=== PATIENT | female | born 1965 | race Caucasian/White ===

== ENCOUNTER → 2016-07-05 | Outpatient (CLI) | payer BC | END | disposition home or self-care (01) | LOC: C.PAPS 09:53 | PROVIDERS: ATTEND Obstetrics & Gynecology | DX: Z01.419 Encounter for gynecological examination (general) (routine) without abnormal findings (principal) ==

== ENCOUNTER 2018-12-19 19:43 | Inpatient (IN) ==
--- OUTSIDE RECORDS SUMMARY | 2018-12-19 19:47 | External Medical Summary | Continuity of Care Document ---
:1965 Author Name Karrie Wild, Provider Address Unavailable Unavailable , Care Team Providers Name Role Phone Unavailable Unavailable Unavailable Silvana Wild, Galina Maxwell Unavailable [email or web address] Philipp JACKSON Unavailable Unavailable Unavailable Unavailable Unavailable Problems Herpes simplex virus (HSV) infection (054.9) (B00.9) Encounter for routine gynecological examination (V72.31) (Z0 1.419) Allergies and Adverse Reactions No Known Drug Allergies (Allergy) Medications valACYclovir HCl - 500 MG Oral Tablet; One tablet twic e daily for 3 days Junito Pina Start: 05-Jul-2016 Quantity: 6 Refills: 2 Acyclovir 5 % External Ointment; Apply t o affected area every 2-3 hours as needed. Junito Pina Start: 05-Jul-2016 Quantity: 1 15 GM Tube Refills: 1 Procedures History of Oral Surgery Tooth Extraction Status: Completed History of Colonoscopy (Fiberoptic) Stat us: Completed Immunizations Immunizations not documented Family History Mother Family history of hypercholesterolemia (V18.19) (Z83.42) Sta tus: Active Brother Family history of hypercholesterolemia (V18.19) (Z83.42) Sta tus: Active Grandmother Family history of osteoporosis (V17.81) (Z82.62) Status: Act naren Grandfather Family history of Colon cancer (153.9) (C18.9) Status: Activ e uncle Family history of Colon cancer (153.9) (C18.9) Status: Activ e Social History - Smoking Status Never smoker Plan of Treatment Planned Observations Planned Goals not documented Results No Known Results Results not documented
[2018-12-19] MEDS ORDERED: SODIUM CHLORIDE 0.9% 1000ML 1,000 ML IV SCH (20:15)
[2018-12-19] MEDS ORDERED: ONDANSETRON INJ 2 MG/ML 2 ML VIAL IV STA (20:15)
[2018-12-19 20:27] LABS: Hematocrit (blood only) 36.6 % (37-47); Hemoglobin 13.2 g/dL (12.0-16.0); Mean Corpuscular Hgb Conc 36.1 g/dL (32-36); Mean Corpuscular Volume 83.8 fL (80-100); Mean Platelet Volume 11.2 fL (7.4-10.4); Platelet Count 213 K/uL (130-400); RDW Coefficient of Variation 12.2 % (11.5-14.5); RDW Standard Deviation 37.4 fL (36.4-46.3); Red Blood Count 4.37 M/uL (4.2-5.4); White Blood Count 8.42 K/uL (4.8-10.8)
--- NOTE | 2018-12-19 20:38 | Emergency Department Note ---
Entered by Faisal Saravia acting as a scribe for Erich Soto DO History of Present Illness General Chief complaint: Vomiting Stated complaint: FOOD BORNE ILLNESS,PASSING OUT,VOMITING Time Seen by Provider: 12/19/18 20:05 Source: patient History of Present Illness Onset (ago): hour(s) (earlier today) Location: mouth (vomiting) Pain Consistency: + intermittent Maximum Pain Intensity: 5 Quality: + burning Exacerbated By: + other (food) Associated symptoms: + nausea/vomiting and + other (dehydration, diarrhea, back pain, and dark stool, abdominal pain, burning diaphragm) The patient is a 53 year old F who presents to the Emergency Room with complaints of intermittent vomiting that started earlier today. The patient states that she was at a restaurant last night and had sauerkraut to eat. She notes that she thinks she might have food poisoning. She adds that 5 other individuals who ate at the restaurant yesterday share similar symptoms to her. She adds that last night after dinner, she was experiencing a burning diaphragm and abdominal pain. She states that she is currently experiencing nausea, vomiting, dehydration, diarrhea, back pain, and dark stool. She adds that she has had 10 bowel movements today. Home Medications Home Medications Medication Instructions Recorded Confirmed Type No Known Home Medications 12/19/18 12/19/18 History Allergies Allergy/AdvReac Type Severity Reaction Status Date / Time gluten AdvReac Unknown Gastrointestinal Verified 12/19/18 21:14 Upset Past Med/Surg History Medical History No chronic problems Family History Other No significant family history Social History Preferred Language: Cook Islander Feels Safe at Home: Yes Smoking Status: Never smoker Review of Systems See HPI for pertinent positives & negatives. and A total of 10 systems reviewed and were otherwise negative Physical Exam Vital Signs Vital Signs - 24 hr 12/19/18 19:48 12/19/18 21:11 Temperature 37.0 C 37.1 C Temperature Source Oral Oral Sepsis Recent Fever Within 48 Hours No Sepsis New/Unexplained Change in Mental Status No Sepsis Action Taken by Nursing No Action Required Pulse Rate 79 Pulse Rate [Finger] 65 Respiratory Rate 18 18 Respiratory Effort / Characteristics Non-Labored Respiratory Depth Normal Blood Pressure 144/78 H Blood Pressure [Right Arm] 114/61 Blood Pressure Mean 100 Blood Pressure Mean [Right Arm] 78 Pulse Oximetry 99 92 Oxygen Delivery Method Room Air Room Air CONSTITUTIONAL/VITAL SIGNS: Reviewed / noted above. GENERAL: Non-toxic in appearance. INTEGUMENTARY: Warm, dry, and [place]. HEAD: Normocephalic. EYES: without scleral icterus or trauma. ENT/OROPHARYNX: clear and moist. LYMPHADENOPATHY/NECK: Is supple without lymphadenopathy or meningismus. RESPIRATORY: Lungs clear and equal. CARDIOVASCULAR: Regular rate and rhythm. GI/ABDOMEN: Soft and nontender. No organomegaly or pulsatile mass. No rebound or guarding. Normal bowel sounds. EXTREMITIES: Warm and well perfused. BACK: No CVA tenderness. NEUROLOGICAL: Intact without focal deficits. PSYCHIATRIC: normal affect. MUSCULOSKELETAL: Normally developed with good muscle tone. Course 2006: Past medical records reviewed. The patient was evaluated in room C5. A complete history and physical exam was performed. 213: I reviewed the patient's case with Dr. Jasiel Hidalgo, [facility] Hospitalist. He will evaluate the patient for further management. Consultations Consultation #1: I reviewed the patient's case with Dr. Jasiel Hidalgo, [facility] Hospitalist. He will evaluate the patient for further management. Time: 21:31 Administered Medications Discontinued Medications Acetaminophen (Tylenol) 500 mg PO NOW STA Stop: 12/19/18 21:16 Last Admin: 12/19/18 21:19 Dose: 500 mg Documented by: [id number] Sodium Chloride (Nss 1000ml) 1,000 mls @ 999 mls/hr IV .Q1H1M VIVIAN Stop: 12/19/18 21:15 Last Admin: 12/19/18 20:21 Dose: 999 mls/hr Documented by: [id number] Ondansetron HCl (Zofran) 4 mg IV NOW STA Stop: 12/19/18 20:16 Last Admin: 12/19/18 20:24 Dose: 4 mg Documented by: [id number] Medical Decision Making Differential Diagnosis Differential diagnosis includes: gastroenteritis, food borne illness, infections, appendicitis, diverticulitis, inflammatory bowel disease, obstruction, GI bleed, biliary pathology, as well as others were entertained. Medical Records Attestation: I reviewed the patient's medical records. Home Medications Current Medication List: was personally reviewed by me Laboratory Data Attestation: I reviewed the patient's lab results. Result diagrams: 12/19/18 20:04 12/19/18 20:04 Lab Results 12/19/18 12/19/18 Range/Units 20:04 20:04 WBC 8.42 (4.8-10.8) K/uL RBC 4.37 (4.2-5.4) M/uL Hgb 13.2 (12.0-16.0) g/dL Hct 36.6 L (37-47) % MCV 83.8 (80-100) fL MCH 30.2 (25-34) pg MCHC 36.1 H (32-36) g/dL RDW Std Deviation 37.4 (36.4-46.3) fL RDW Coeff of Ayo 12.2 (11.5-14.5) % Plt Count 213 (130-400) K/uL MPV 11.2 H (7.4-10.4) fL Immature Gran % (Auto) 0.1 % Neut % (Auto) 76.4 % Lymph % (Auto) 12.5 % [place] % (Auto) 9.5 % Eos % (Auto) 1.4 % Baso % (Auto) 0.1 % Immature Gran # (Auto) 0.01 (0.00-0.02) K/uL Neut # (Auto) 6.43 (1.4-6.5) K/uL Lymph # (Auto) 1.05 L (1.2-3.4) K/uL [place] # (Auto) 0.80 H (0.11-0.59) K/uL Eos # (Auto) 0.12 (0-0.5) K/uL Baso # (Auto) 0.01 (0-0.2) K/uL Sodium 123 L (136-145) mmol/L Potassium 3.1 L (3.5-5.1) mmol/L Chloride 91 L (98-107) mmol/L Carbon Dioxide 21 (21-32) mmol/L Anion Gap 11.0 (3-11) BUN 9 (7-18) mg/dl Creatinine 0.77 (0.6-1.2) mg/dl Est Cr Clr Drug Dosing 83.5 ml/min Est GFR ( Amer) 100.7 Est GFR (Non-Af Amer) 86.9 BUN/Creatinine Ratio 11.5 (10-20) Glucose 129 H (70-99) mg/dl Calcium 8.8 (8.5-10.1) mg/dl Total Bilirubin 0.9 (0.2-1) mg/dl AST 22 (15-37) U/L ALT 24 (12-78) U/L Alkaline Phosphatase 89 (45-117) U/L Total Protein 7.2 (6.4-8.2) gm/dl Albumin 3.7 (3.4-5.0) gm/dl Globulin 3.5 (2.5-4.0) gm/dl Albumin/Globulin Ratio 1.0 (0.9-2) Lipase 402 H (73-393) U/L Blood Pressure Blood Pressure Findings: Normal blood pressure Blood Pressure Disposition: did not require urgent referral MDM Narrative This is a 53-year-old female who presents to the ED with a chief complaint of nausea, vomiting diarrhea. The patient states that she thinks that she may have had some bad food last night. Other people are symptomatic but not as bad as her. She states that her symptoms started this morning with some nausea. She also developed an episode of vomiting about an hour ago and diarrhea about 10 times today. She has had some crampy abdominal pains as well. Her physical exam reveals some mild hypertension. She has a nontender abdomen. The rest of her exam was unremarkable. She appears to be in minimal discomfort. She did not want anything for pain. The CBC was normal. Sodium is 123. Chloride is 91 and potassium is 3.1. The patient was hydrated with a liter of normal saline IV. She was given some Tylenol for headache. Because of the low sodium and vomiting/diarrhea, I spoke with the hospitalist who will see the patient for further evaluation and care per Impression & Plan Hyponatremia, Nausea & vomiting, Diarrhea, Dehydration Discharge Plan Visit Data Chief Complaint: Vomiting Stated Complaint: FOOD BORNE ILLNESS,PASSING OUT,VOMITING ED Provider: Erich Soto Discharge Problem: Hyponatremia, Nausea & vomiting, Diarrhea, Dehydration Patient Disposition: Admitted As Inpatient Forms Stand Alone Forms: My [facility] [employer] Prescriptions Prescriptions: No Action No Known Home Medications RF: 0 Referrals Referrals: Karie Mcnamara MD [Primary Care Provider] - Discharge Problem: Nausea & vomiting Qualifiers: Vomiting type: unspecified Vomiting Intractability: non-intractable Qualified Code(s): R11.2 - Nausea with vomiting, unspecified Diarrhea Qualifiers: Diarrhea type: unspecified type Qualified Code(s): R19.7 - Diarrhea, unspecified The scribe's documentation has been prepared under my direction and personally reviewed by me in its entirety. I confirm that the note above accurately refle cts all work, treatment, procedures, and medical decision making performed by me.
[2018-12-19 20:40] LABS: Albumin Level 3.7 gm/dl (3.4-5.0); BUN Creatinine Ratio 11.5 (10-20); Calcium 8.8 mg/dl (8.5-10.1); Creatinine Clr Calc Pharmacy 83.5 ml/min; Est GFR (African American) 100.7; Est GFR (Non-African American) 86.9
[2018-12-19 21:02] LABS: Bilirubin,Total 0.9 mg/dl (0.2-1); Globulin 3.5 gm/dl (2.5-4.0); Potassium 3.1 mmol/L (3.5-5.1); Total Protein 7.2 gm/dl (6.4-8.2)
[2018-12-19 21:09] LABS: Basophils # (auto) 0.01 K/uL (0-0.2); Basophils % (auto) 0.1 %; Eosinophils # (auto) 0.12 K/uL (0-0.5); Eosinophils % (auto) 1.4 %; Immature Granulocytes # (auto) 0.01 K/uL (0.00-0.02); Immature Granulocytes % (auto) 0.1 %; Lymphocytes # (auto) 1.05 K/uL (1.2-3.4); Lymphocytes % (auto) 12.5 %; Monocytes % (auto) 9.5 %; Neutrophils # (auto) 6.43 K/uL (1.4-6.5); Neutrophils % (auto) 76.4 %
[2018-12-19] MEDS ORDERED: ACETAMINOPHEN 500 MG TAB PO STA (21:15)
--- NOTE | 2018-12-19 22:20 | History & Physical Report ---
Date of Service December 19, 2018 Assessment & Plan (1) Hyponatremia: Patient presents to the emergency department with nausea, vomiting, diarrhea and fatigue that was present before but worsening after symptoms. Order stool culture and stool for WBC smear/E. coli due to concern regarding potential food poisoning. NPO except medications. NSS + KCl 20 mEq at 150 mils per hour. Zofran 4 mg IV every 6 hours PRN. Acetaminophen 5 mg IV every 8 hours PRN mild pain or temperature. Order serum osmolality, urine osmolality and urine sodium. Order Monospot, Lyme and anaplasmosis testing, due to some symptoms being present prior to food exposures. Present on Admission?: Yes (2) Diarrhea: Stool studies as noted above. Present on Admission?: Yes (3) Nausea & vomiting: See above Present on Admission?: Yes (4) Dehydration: See above Present on Admission?: Yes (5) Hypokalemia: See above Present on Admission?: Yes History of Present Illness Chief Complaint: Patient presents to the emergency department with complaint of nausea, vomiting and diarrhea that she attributes to food that she ate the previous evening. Primary Care Provider: Karie Mcnamara MD The patient is a 53-year-old female with no significant past medical history, who presents to the emergency department with complaint of nausea, vomiting and diarrhea that began approximately 6 to 8 hours after eating out at a restaurant, where several of her friends got sick as well. She reports that she had been feeling some fatigue prior to that as well. She presently is taking care of her , who has a combination of mono, Lyme disease and anaplasmosis. She is unaware of any personal tick bites Allergies Allergy/AdvReac Type Severity Reaction Status Date / Time gluten AdvReac Unknown Gastrointestinal Verified 12/19/18 21:14 Upset Home Medications Home Medications Medication Instructions Recorded Confirmed Type No Known Home Medications 12/19/18 12/19/18 History Past Med/Surg History Medical History No chronic problems Family History Other No significant family history Social History Preferred Language: Upper Sorbian Communication Ability: Effective Beliefs That Will Affect Care: None Current Living Situation: Spouse Other Information That Helps Us Care for You: No Feels Safe at Home: Yes Smoking Status: Never smoker Do You Dip or Chew Tobacco: No Second Hand Exposure: No Tobacco Cessation Education Requested by Patient: No Hx Alcohol Use: No Hx Substance Use: No Review of Systems Review of Systems: The patient denies chest pain, palpitations, shortness of breath, dyspnea on exertion, cough, lower extremity swelling, sore throat, fevers, chills, sweats, blood in urine or stool, dysuria, urinary frequency or urgency, headache, memory loss, loss of consciousness, rash, abnormal bruising or bleeding, imbalance, focal or generalized weakness, numbness or tingling in arms or legs, generalized arthralgias or myalgias, back or neck pain, or night sweats. The review of systems is otherwise negative other than for that already noted above, and at least 10 systems have been reviewed.. Physical Exam Physical Exam: The patient is awake, alert and oriented 3, looks fatigued, normocephalic and atraumatic, lying in bed and in no acute distress. HEENT--PERRL, EOMI, mucous membranes and oropharynx dry. Neck--supple. No JVD. No bruits. Thyroid normal, trachea midline, no adenopathy. Heart--normal S1 and S2. No murmurs, rubs or gallops. Lungs--clear bilaterally, no respiratory distress, no accessory muscle use. Abdomen--normal bowel sounds and soft. Nontender. Nondistended. Extremities--no cyanosis or clubbing. No edema. There are good distal pulses b/l. Dermatologic--normal skin turgor, normal color, no abnormal lymph nodes, no ra sh. Neurologic--cranial nerves II through XII grossly intact. Rheumatologic--normal range of motion. Psychiatric--normal affect. Results & Data Vital Signs (Past 12 Hours) Vital Signs Temp Pulse Pulse Resp BP BP Pulse Ox 12/19/18 21:11 98.8 F 65 18 114/61 92 12/19/18 19:48 98.6 F 79 18 144/78 H 99 Laboratory Results Laboratory Results WBC 8.42 K/uL (4.8-10.8) 12/19/18 20:04 RBC 4.37 M/uL (4.2-5.4) 12/19/18 20:04 Hgb 13.2 g/dL (12.0-16.0) 12/19/18 20:04 Hct 36.6 % (37-47) L 12/19/18 20:04 MCV 83.8 fL (80-100) 12/19/18 20:04 MCH 30.2 pg (25-34) 12/19/18 20:04 MCHC 36.1 g/dL (32-36) H 12/19/18 20:04 RDW Std Deviation 37.4 fL (36.4-46.3) 12/19/18 20:04 RDW Coeff of Ayo 12.2 % (11.5-14.5) 12/19/18 20:04 Plt Count 213 K/uL (130-400) 12/19/18 20:04 MPV 11.2 fL (7.4-10.4) H 12/19/18 20:04 Immature Gran % (Auto) 0.1 % 12/19/18 20:04 Neut % (Auto) 76.4 % 12/19/18 20:04 Lymph % (Auto) 12.5 % 12/19/18 20:04 [place] % (Auto) 9.5 % 12/19/18 20:04 Eos % (Auto) 1.4 % 12/19/18 20:04 Baso % (Auto) 0.1 % 12/19/18 20:04 Immature Gran # (Auto) 0.01 K/uL (0.00-0.02) 12/19/18 20:04 Neut # (Auto) 6.43 K/uL (1.4-6.5) 12/19/18 20:04 Lymph # (Auto) 1.05 K/uL (1.2-3.4) L 12/19/18 20:04 [place] # (Auto) 0.80 K/uL (0.11-0.59) H 12/19/18 20:04 Eos # (Auto) 0.12 K/uL (0-0.5) 12/19/18 20:04 Baso # (Auto) 0.01 K/uL (0-0.2) 12/19/18 20:04 Peripher Smr Path Cons Cancelled 12/19/18 23:52 Sodium 123 mmol/L (136-145) L 12/19/18 20:04 Potassium 3.1 mmol/L (3.5-5.1) L 12/19/18 20:04 Chloride 91 mmol/L (98-107) L 12/19/18 20:04 Carbon Dioxide 21 mmol/L (21-32) 12/19/18 20:04 Anion Gap 11.0 (3-11) 12/19/18 20:04 BUN 9 mg/dl (7-18) 12/19/18 20:04 Creatinine 0.77 mg/dl (0.6-1.2) 12/19/18 20:04 Est Cr Clr Drug Dosing 83.5 ml/min 12/19/18 20:04 Est GFR ( Amer) 100.7 12/19/18 20:04 Est GFR (Non-Af Amer) 86.9 12/19/18 20:04 BUN/Creatinine Ratio 11.5 (10-20) 12/19/18 20:04 Glucose 129 mg/dl (70-99) H 12/19/18 20:04 Osmolality 256 mOsm/kg (280-300) L 12/19/18 20:04 Calcium 8.8 mg/dl (8.5-10.1) 12/19/18 20:04 Total Bilirubin 0.9 mg/dl (0.2-1) 12/19/18 20:04 AST 22 U/L (15-37) 12/19/18 20:04 ALT 24 U/L (12-78) 12/19/18 20:04 Alkaline Phosphatase 89 U/L (45-117) 12/19/18 20:04 Total Protein 7.2 gm/dl (6.4-8.2) 12/19/18 20:04 Albumin 3.7 gm/dl (3.4-5.0) 12/19/18 20:04 Globulin 3.5 gm/dl (2.5-4.0) 12/19/18 20:04 Albumin/Globulin Ratio 1.0 (0.9-2) 12/19/18 20:04 Lipase 402 U/L (73-393) H 12/19/18 20:04 Code Status & VTE Plan Code Status Full code VTE Prophylaxis Plan VTE Prophylaxis will be ordered: Yes PG Care Time/CCT Total # of Minutes Spent Total Time Spent with Patient: Total time spent is greater than 50% in coordination of care (as documented) at patient's floor/unit and/or counseling patient: (1) Diarrhea Diarrhea type: unspecified type Qualified Code(s): R19.7 - Diarrhea, unspecified (2) Nausea & vomiting Vomiting Intractability: non-intractable Vomiting type: unspecified Qualified Code(s): R11.2 - Nausea with vomiting, unspecified
[2018-12-19] MEDS ORDERED: ACETAMINOPHEN 1000 MG/100 ML IV IV PRN (23:52)
[2018-12-19] MEDS ORDERED: ONDANSETRON INJ 2 MG/ML 2 ML VIAL IV PRN (23:52)
[2018-12-20] MEDS: ACETAMINOPHEN 325 MG TAB PO PRN ×2 (00:08→05:59)
[2018-12-20] MEDS: NSS + 20MEQ KCL 20 MEQ/1,000 ML BAG IV SCH ×2 (00:09→06:00)
[2018-12-20 00:48] LABS: Appearance Urine Clear (Clear); Bilirubin Urine Negative (Negative); Blood Urine Negative (Negative); Color Urine Yellow; Glucose Urine UA Negative (Negative); Ketones Urine Trace (Negative); Leukocyte Esterase Urine Negative (Negative); Nitrite Urine Negative (Negative); Protein Urine Negative (Negative); Specific Gravity Urine 1.009 (1.000-1.030); Urobilinogen Urine Negative (Negative)
[2018-12-20 01:44] LABS: Lyme Ab IgG w/WB Rflx Negative (Negative)
[2018-12-20 01:45] LABS: Lyme Ab IgM w/WB Rflx Negative (Negative)
[2018-12-20 06:29] LABS: Albumin Level 3.2 gm/dl (3.4-5.0); BUN Creatinine Ratio 8.4 (10-20); Bilirubin,Total 0.7 mg/dl (0.2-1); Calcium 8.5 mg/dl (8.5-10.1); Creatinine Clr Calc Pharmacy 80.4 ml/min; Est GFR (African American) 105.7; Est GFR (Non-African American) 91.2; Globulin 3.3 gm/dl (2.5-4.0); Potassium 3.9 mmol/L (3.5-5.1); Total Protein 6.5 gm/dl (6.4-8.2)
[2018-12-20] MEDS ORDERED: LACTATED RINGER'S 1,000 ML IV SCH (11:00)
[2018-12-20 15:22] LABS: BUN Creatinine Ratio 8.4 (10-20); Calcium 8.7 mg/dl (8.5-10.1); Creatinine Clr Calc Pharmacy 78.3 ml/min; Est GFR (African American) 102.3; Est GFR (Non-African American) 88.3; Potassium 3.8 mmol/L (3.5-5.1)
--- NOTE | 2018-12-20 16:42 | Discharge Summary ---
Date of Service December 20, 2018 Admission HPI Per Admitting Provider The patient is a 53-year-old female with no significant past medical history, who presents to the emergency department with complaint of nausea, vomiting and diarrhea that began approximately 6 to 8 hours after eating out at a restaurant, where several of her friends got sick as well. She reports that she had been feeling some fatigue prior to that as well. She presently is taking care of her , who has a combination of mono, Lyme disease and anaplasmosis. She is unaware of any personal tick bites Admission Exam Per Admitting Provider The patient is awake, alert and oriented 3, looks fatigued, normocephalic and atraumatic, lying in bed and in no acute distress. HEENT--PERRL, EOMI, mucous membranes and oropharynx dry. Neck--supple. No JVD. No bruits. Thyroid normal, trachea midline, no adenopathy. Heart--normal S1 and S2. No murmurs, rubs or gallops. Lungs--clear bilaterally, no respiratory distress, no accessory muscle use. Abdomen--normal bowel sounds and soft. Nontender. Nondistended. Extremities--no cyanosis or clubbing. No edema. There are good distal pulses b/l. Dermatologic--normal skin turgor, normal color, no abnormal lymph nodes, no rash. Neurologic--cranial nerves II through XII grossly intact. Rheumatologic--normal range of motion. Psychiatric--normal affect. Principal Diagnosis Acute infectious diarrhea Discharge Exam General: A&Ox3. NAD. Cooperative. HEENT: Atraumatic, normocephalic. Pulm: CTAB A&P. -wheezes, -rales, -rhonchi. Symmetrical chest rise. No increase work of breathing. No respiratory distress. Cardiac: RRR, -mrg. Radial pulses intact and symmetrical. Abdominal: Nontender, nondistended, soft. BS present. Discharge Data Allergies Allergy/AdvReac Type Severity Reaction Status Date / Time gluten AdvReac Unknown Gastrointestinal Verified 12/19/18 21:14 Upset Consultations 12/19/18 21:31 ED Decision to Admit Stat 12/19/18 23:52 Consult Case Management - Discharge Planning Routine Hospital Course (1) Diarrhea: Nesha is a 53-year-old female with no past medical history who presented with 1 day of acute nausea, stomachache, nonbilious vomiting, and severe diarrhea following ingestion of homemade sauerkraut. She had a friend who ate the same food and had similar symptoms. Acute infectious diarrhea/food poisoning On evening of admission Nesha had been experiencing severe stomach cramps, vomiting, and diarrhea 8 hours after eating homemade sauerkraut. She had 13 episodes of nonbloody, non-melanic diarrhea before midnight. She also had nonbloody, nonbilious emesis. She did not have any fever, but felt chilly, sweaty, and unwell. On admission she was afebrile but mildly hypotensive. Stool culture and white blood cell smear were obtained in the ED, she is made n.p.o. except medications, given Zofran for nausea, Tylenol for pain, and given a 1 L saline bolus. She is admitted to service and placed on lactated Ringer's with potassium and observed overnight. The following morning her diarrhea had complete resolved, and she had no further episodes since admission. She had no further vomiting, and her stomach cramps had reduced to a very mild ache with no nausea or vomiting. She was able to tolerate liquid diet which was then advanced to regular diet without nausea or further emesis. She was drinking fluids well, and reported that she felt clinically almost back to her normal baseline and requested discharge. She was discharged in good health with no symptoms to follow-up to her PCP. No indication for antibiotics during admission. Hyponatremia Nesha reports that she does not have a history of low sodium, and normally gets her blood work checked through [facility]. On admission she had an acutely lowered sodium to 123 which rapidly corrected overnight to 141. She had no history of hyponatremia, and outside records showed a prior to admission sodium of 142 on her last BMP. Her BMP was repeated and sodium remained stable on afternoon recheck of 141. Her low sodium was likely acute in the setting of infectious diarrhea and her risk for osmotic demyelination was low. She was discharged in a euvolemic state with follow-up to her PCP. Her kidney function and glucose were normal through admission. Hypokalemia On admission Nesha was mildly hypokalemic, her serum potassium normalized following IV fluid therapy as noted above. She is not discharged on oral replacement given the normalization of her electrolytes and resolution of her diarrhea. (2) Dehydration: (3) Nausea & vomiting: Total Time Total Time Spent Total Time Spent (In Minutes): 32 Discharge Plan Discharge Items Patient Disposition: Home - Self-Care Reason For Visit: HYPONATREMIA,HYPOKALEMIA, GASTROENTERITIS Discharge Diagnosis: Food Poisoning Discharge Goals: Decrease discomfort Activity: Resume your previous activity Non-emergency contact: Primary Care Provider Call non-emergency contact if: you have any medication questions, your symptoms worsen, your pain is not controlled, your pain is worsening, your pain is unusual for you, your pain is concerning for you, you have a fever and your temperature is above 100.5 Follow-up/Referrals: Karie Mcnamara MD [Primary Care Provider] - Diet: Regular Addtl Provider Instructions: You were seen in the hospital for an episode severe nausea/vomiting and diarrhea likely due to food poisoning. You symptoms improved overnight with IV fluids. You did not require any antibiotics. Your blood pressure, heart rate, and white blood cell count (marker of infection) were all normal at time of discharge. No antibiotics are indicated at this time. You have not been prescribed any new medications. Please drink plenty of fluids (~60oz per day). You may also drink some pedialyte or gatorade which have salts to help stay hydrated. If you develop any worsening fever, chills, sweats, nausea, vomiting, diarrhea, abdominal pain, bloody diarrhea, blood in the urine, rash/skin changes, lightheadness, weakness, or vision change please call your primary care doctor or call 911 for transport to the emergency department if you are very concerned. Please call your primary care doctor, Dr. Mcnamara, at to make a followup appointment in the next week or two to make sure your symptoms have completely resolved. Prescriptions: No Action No Known Home Medications RF: 0 Stand-Alone Forms: [facility] Discharge Orders: Discharge Order (Routine); Ordered 12/20/18 Ordered By: Albin Wayne Admission Data Admit Date/Time: 12/19/18 22:19 Attending Provider: Travis Haile Admit Provider: Jasiel Hidalgo Primary Care Provider: Karie Mcnamara Other Providers: Jasiel Hidalgo Service: Medical Other Interventions: Discharge Summary Assessment (RN) Last Done: 12/20/18 16:50 DC Date/Time DO NOT enter until pt leaves facility: 12/20/18 18:39 Supervising Physician Co-Signing Physician Notes I interviewed and examined the patient. Discussed with resident provider and agree with findings and plan as documented in the note. Any exceptions or clarifications are listed here: None Over course of night, patient reported feeling better and denied any new symptoms. As stated above will discharge patient. Plan thoroughly discussed with resident and patient. No antibiotics were required. Resident Activity Tracking Resident Involvement: Resident Care Provided Care Provided: Adult [facility] Medicine
[2018-12-23 15:54] LABS: Anaplasma phagocytophila IgM <1:20 (<1:20); Epstein Barr Virus Early Ag Ab < 9.00 U/ML
== END 2018-12-20 18:39 | disposition home or self-care (01) | DRG 392 ==
LOC: ED 19:43 → 4E 22:19 → SUATTDRO 22:19 → 4E 23:09
DX: E86.0 Dehydration; E87.1 Hypo-osmolality and hyponatremia; T62.91XA Toxic effect of unspecified noxious substance eaten as food, accidental (unintentional), initial encounter; E87.6 Hypokalemia; A09 Infectious gastroenteritis and colitis, unspecified